=== PATIENT | female | born 1965 | race African-American/Black ===

== ENCOUNTER 2017-07-21 21:37 | Emergency (ER) | payer SELFPAY ==
[~2017-07-21] VITALS: Ht 157.5 cm; Wt 113.4 kg
[2017-07-21 22:01] VITALS: BP 145/84
[2017-07-21] MEDS ORDERED: cefTRIAXone W LIDOCAINE 1 GM IM IM ONE (22:30)
[2017-07-21] MEDS ORDERED: cefTRIAXone SOD 1,000 MG VL ONE (22:53)
[2017-07-21] MEDS ORDERED: LIDOCAINE 1% HCL (LOCAL ANESTH.) INJ 20ML MDV ONE ×3 (22:54→23:28)
[2017-07-21] MEDS ORDERED: cefTRIAXone SOD 1,000 MG VL IM ONE (23:15)
[2017-07-22] MEDS ORDERED: BACITRACIN TOP OINT 1 UD PKG TOP ONE (00:45)
== END 2017-07-22 06:59 | disposition home or self-care (01) ==
LOC: ER 21:37
DX: S51.012A Laceration without foreign body of left elbow, initial encounter (principal); S71.112A Laceration without foreign body, left thigh, initial encounter; Y08.89XA Assault by other specified means, initial encounter; Y93.89 Activity, other specified; Y92.89 Other specified places as the place of occurrence of the external cause; Y99.8 Other external cause status
CPT/HCPCS: 12006; 71101; 96372; 99284; J0696; J2001